=== PATIENT | female | born 1970 | race Hispanic/Latino ===

== ENCOUNTER 2017-09-23 13:02 | Emergency (ER) | payer MEDICAID, OTHER ==
[2017-09-23 13:03] VITALS: BMI 24.8
[2017-09-23 13:10] VITALS: BP 107/68; PULSE 77; RESP 18; TEMP 98.2; O2SAT 98
[2017-09-23] MEDS ORDERED: Tetracaine 0.5% Ophth 2 ML BOTTLE OD ONE (13:43)
[2017-09-23] MEDS ORDERED: Fluorescein 1 mg Ophthalmic Strip OD ONE (13:43)
--- NOTE | 2017-09-23 14:35 | ED PDOC ---
HPI: Eye Injury/Pain Time Seen by Provider: 09/23/17 13:14 Chief Complaint (Nursing): Eye Problem Chief Complaint (Provider): Eye Problem History Per: Patient History/Exam Limitations: no limitations Onset/Duration Of Symptoms: Hrs Current Symptoms Are (Timing): Still Present Additional Complaint(s): 47 year old female presents to the emergency department with a complaint of a right eye pain with a foreign body sensation when she woke up this morning. Denies vision changes, decrease in vision, visual halos around the light, redness, discharge, trauma, or any further medical complaints. Past Medical History Reviewed: Historical Data, Nursing Documentation, Vital Signs Vital Signs: Last Vital Signs Temp 98.2 F 09/23/17 13:08 Pulse 77 09/23/17 13:08 Resp 18 09/23/17 13:08 BP 107/68 09/23/17 13:08 Pulse Ox 98 09/23/17 13:08 - Medical History PMH: Anxiety, Arthritis, Asthma, Back Problems, Bipolar Disorder, Depression, Gastritis, GERD - Surgical History Surgical History: Tonsillectomy - Family History Family History: States: Unknown Family Hx - Immunization History Hx Tetanus Toxoid Vaccination: No Hx Influenza Vaccination: Yes Hx Pneumococcal Vaccination: No - Home Medications Home Medications: Ambulatory Orders Medication Instructions Recorded Klonopin 0.5 mg PO BID 02/21/13 Seroquel 150 mg PO HS 02/21/13 Cymbalta 10 mg PO DAILY 12/21/13 Percocet 10/325 mg Tab 10 mg PO TID PRN 12/21/13 Naproxen [Naprosyn Tab] 500 mg PO BID #30 tab 03/25/14 Prednisone 2 tab PO DAILY #10 tab 03/25/14 Melatonin [Melatonin] 1 tab PO DAILY 07/15/14 Simvastatin [Zocor] 1 tab PO DAILY 07/15/14 Tizanidine Hydrochloride [Zanaflex] 1 tab PO DAILY 07/15/14 Promethazine HCl/Codeine 10 ml PO Q6 PRN #6 oz 04/26/16 [Prometh-Codein 6.25-10 mg/5 ml] levoFLOXacin [Levaquin] 500 mg PO DAILY #10 tab 04/26/16 Ketorolac Tromethamine [Acular 1 drop OD QID #1 bottle 09/23/17 0.5%] Tobramycin [Tobrex 5 ml] 1 drop OD Q4H #1 bottle 09/23/17 - Allergies Allergies/Adverse Reactions: Allergies Allergy/AdvReac Type Severity Reaction Status Date / Time No Known Allergies Allergy Verified 09/23/14 21:49 Review of Systems ROS Statement: Except As Marked, All Systems Reviewed And Found Negative (As per HPI, otherwise negative) Eyes: Positive for: Pain (Right), Other (Foreign body sensation). Negative for : Vision Change (No visual halos around the light or contact lens usage), Redness (discharge or decrease in vision) Physical Exam - Reviewed Nursing Documentation Reviewed: Yes Vital Signs Reviewed: Yes - Physical Exam Appears: Positive for: In Acute Distress (Mild) Head Exam: Positive for: NORMAL INSPECTION Skin: Positive for: Warm, Dry. Negative for: Cyanosis Eye Exam: Positive for: Normal appearance, EOMI, PERRL, Conjunctival injection ( Mild with small corneal abrasion @ 6 o'clock). Negative for: Periorbital swelling, Periorbital tenderness, Other (No foreign body noted, discharge, or hemorrhage. ) Cardiovascular/Chest: Positive for: Regular Rate, Rhythm. Negative for: Murmur Respiratory: Positive for: Normal Breath Sounds. Negative for: Accessory Muscle Use, Respiratory Distress Neurologic/Psych: Positive for: Alert, Oriented (x3) - ECG O2 Sat by Pulse Oximetry: 98 (RA) Pulse Ox Interpretation: Normal Medical Decision Making Medical Decision Making: Time: 1343 Initial impression: Eye discomfort Initial plan: --Tetracaine 0.5% Ophth --Fluorescein 1 mg OD --Fluorescein Eye exam --Reevaluation Time: 1430 --Fluorescein Eye Exam shows small corneal abrasion at 6 o'clock of the R eye. Time: 1448 --Patient is medically clear for discharge and given Rx for Acular 0.5% 1 drop and Tobrex 5 mL. Advised to follow up with Dr. Raciel Carrera MD in 1-2 days without fail. Advised to take medication as prescribed. Return to the emergency room at any time for any new or worsening symptoms. Patient states she fully agrees with and understands discharge instructions. States that she agrees with the plan and disposition. Verbalized and repeated discharge instructions and plan. I have given the patient opportunity to ask any additional questions. Clinical impression: Corneal abrasion of the right eye Scribe Attestation: Documented by Isha Enrique, acting as a scribe for Zaynab Henry PA-C Provider Scribe Attestation: All medical record entries made by the Scribe were at my direction and personally dictated by me. I have reviewed the chart and agree that the record accurately reflects my personal performance of the history, physical exam, medical decision making, and the department course for this patient. I have also personally directed, reviewed, and agree with the discharge instructions and disposition. Disposition - Clinical Impression Clinical Impression: Corneal abrasion, right - Patient ED Disposition Is Patient to be Admitted: No Counseled Patient/Family Regarding: Diagnosis, Need For Followup - Disposition Referrals: Raciel Carrera MD [Staff Provider] - Disposition: Routine/Home Disposition Time: 14:30 Condition: STABLE Additional Instructions: Thank you for letting us take care of you today. You were treated for corneal abrasion. The emergency medical care you received today was directed at your acute symptoms. If you were prescribed any medication, please fill it and take as directed. It may take several days for your symptoms to resolve. Return to the Emergency Department if your symptoms worsen, do not improve, or if you have any other problems. Please call one of the physicians/clinics you have been referred to that are listed on the Patient Visit Information form that is included in your discharge packet. Bring any paperwork you were given at discharge with you along with any medications you are taking to your follow up visit. Our treatment cannot replace ongoing medical care by a primary care provider (PCP) outside of the emergency department. Thank you for allowing the [facility] team to be part of your care today. Prescriptions: Ketorolac Tromethamine [Acular 0.5%] 1 drop OD QID #1 bottle Tobramycin [Tobrex 5 ml] 1 drop OD Q4H #1 bottle Instructions: Corneal Abrasion Forms: [employer] (Maltese) - PA / EXTRACTIVE METALLURGIST / Resident Statement MD/DO has reviewed & agrees with the documentation as recorded.
== END 2017-09-23 14:55 | disposition home or self-care (01) ==
LOC: H.ER 13:02
DX: S05.01XA Injury of conjunctiva and corneal abrasion without foreign body, right eye, initial encounter (principal); Y92.89 Other specified places as the place of occurrence of the external cause; F31.9 Bipolar disorder, unspecified; F41.9 Anxiety disorder, unspecified; J45.909 Unspecified asthma, uncomplicated; K21.9 Gastro-esophageal reflux disease without esophagitis

== ENCOUNTER 2018-06-18 16:59 | Emergency (ER) | payer MEDICAID, OTHER ==
[2018-06-18 16:59] VITALS: BMI 24.8
[2018-06-18 17:10] VITALS: BP 111/64; PULSE 87; RESP 16; TEMP 97.8; O2SAT 98
--- NOTE | 2018-06-18 17:39 | ED PDOC ---
Lower Extremity Pain/Injury Time Seen by Provider: 06/18/18 17:25 Chief Complaint (Nursing): Lower Extremity Problem/Injury Chief Complaint (Provider): Left Leg Wound History Per: Patient History/Exam Limitations: no limitations Current Symptoms Are (Timing): Still Present Additional Complaint(s): 47 year old female presents to the ED for left leg evaluation. Patient reports that two days ago she noticed swelling in her left leg, and after scratching at it, it opened up and clear fluid drained out. She notes it has since been surrounded with redness and swelling. Otherwise denies fever and chills. Additionally, she states she has a history of intermittent numbness in her foot that she has yet to have worked up by her PMD. PMD: Kailash Bob Past Medical History Reviewed: Historical Data, Nursing Documentation, Vital Signs Vital Signs: Last Vital Signs Temp 97.8 F 06/18/18 17:04 Pulse 87 06/18/18 17:04 Resp 16 06/18/18 17:04 BP 111/64 06/18/18 17:04 Pulse Ox 98 06/18/18 17:04 - Medical History PMH: Anxiety, Arthritis, Asthma, Back Problems, Bipolar Disorder, Depression, Gastritis, GERD, HTN, Hyperlipidemia - Surgical History Surgical History: Tonsillectomy - Family History Family History: States: Stroke, CAD, Hypertension - Social History Current smoker - smoking cessation education provided: Yes Alcohol: Social Drugs: Denies - Immunization History Hx Tetanus Toxoid Vaccination: No Hx Influenza Vaccination: Yes Hx Pneumococcal Vaccination: No - Home Medications Home Medications: Ambulatory Orders Medication Instructions Recorded Klonopin 0.5 mg PO BID 02/21/13 Seroquel 150 mg PO HS 02/21/13 Cymbalta 10 mg PO DAILY 12/21/13 Percocet 10/325 mg Tab 10 mg PO TID PRN 12/21/13 Naproxen [Naprosyn Tab] 500 mg PO BID #30 tab 03/25/14 Prednisone 2 tab PO DAILY #10 tab 03/25/14 Melatonin 1 tab PO DAILY 07/15/14 Simvastatin [Zocor] 1 tab PO DAILY 07/15/14 Tizanidine Hydrochloride [Zanaflex] 1 tab PO DAILY 07/15/14 Promethazine HCl/Codeine 10 ml PO Q6 PRN #6 oz 04/26/16 [Prometh-Codein 6.25-10 mg/5 ml] levoFLOXacin [Levaquin] 500 mg PO DAILY #10 tab 04/26/16 Ketorolac Tromethamine [Acular 1 drop OD QID #1 bottle 09/23/17 0.5%] Tobramycin [Tobrex 5 ml] 1 drop OD Q4H #1 bottle 09/23/17 Bacitracin OINT 0.5 gm TP BID #1 tube 06/18/18 Cephalexin [Keflex] 500 mg PO BID #14 capsule 06/18/18 DiphenhydrAMINE [Benadryl] 50 mg PO Q6 PRN #24 cap 06/18/18 - Allergies Allergies/Adverse Reactions: Allergies Allergy/AdvReac Type Severity Reaction Status Date / Time No Known Allergies Allergy Verified 09/23/14 21:49 Review of Systems ROS Statement: Except As Marked, All Systems Reviewed And Found Negative Constitutional: Negative for: Fever, Chills Musculoskeletal: Positive for: Other (wound to left leg with surrounding redness and swelling, initially with clear drainage as well) Neurological: Positive for: Numbness (intermittent to foot) Physical Exam - Reviewed Nursing Documentation Reviewed: Yes Vital Signs Reviewed: Yes - Physical Exam Appears: Positive for: No Acute Distress Skin: Positive for: Normal Color Pulses-Dorsalis Pedis (L): 2+ Pulses-Dorsalis Pedis (R): 2+ Extremity: Positive for: Normal ROM (of left lower extremity), Other (2cm wound noted to left lower extremity with minimal surrounding erythema) - ECG O2 Sat by Pulse Oximetry: 98 (RA) Pulse Ox Interpretation: Normal Medical Decision Making Medical Decision Making: Time: 1732 Initial Impression: left leg wound Initial Plan: --Wound irrigated in ED and covered with sterile dressing, and pt educated on wound care. Patient instructed to follow up with her PMD within the next two days for further workup. Advised to return to the ED with any worsening symptoms. Stable for discharge with Bacitracin, Keflex, and Benadryl scripts. Scribe Attestation: Documented by Nishi Brown, acting as a scribe for Jed Beltre PA-C. Provider Scribe Attestation: All medical record entries made by the Scribe were at my direction and personally dictated by me. I have reviewed the chart and agree that the record accurately reflects my personal performance of the history, physical exam, medical decision making, and the department course for this patient. I have also personally directed, reviewed, and agree with the discharge instructions and disposition. Disposition - Clinical Impression Clinical Impression: Leg wound, left - Disposition Additional Instructions: F/U WITH PMD IN 2 TO 3 DAYS FOR LEG WOUND EVALUATION F/U WITH VASCULAR SURGEON FOR FURTHER EVALUATION OF CLAUDICATION. Prescriptions: Bacitracin OINT 0.5 gm TP BID #1 tube Cephalexin [Keflex] 500 mg PO BID #14 capsule DiphenhydrAMINE [Benadryl] 50 mg PO Q6 PRN #24 cap PRN Reason: Itching / Pruritus Instructions: Peripheral Artery Disease and Claudication, Wound Care (DC) Forms: [employer] (German)
== END 2018-06-18 18:08 | disposition home or self-care (01) ==
LOC: H.ER 16:59
DX: L03.116 Cellulitis of left lower limb (principal)